=== PATIENT | male | born 1950 | race Caucasian/White ===

== ENCOUNTER 2023-01-27 13:36 | Outpatient (CLI) | payer MEDICARE, BC, SELFPAY | END 2023-01-27 13:37 | disposition home or self-care (01) | PROVIDERS: PCP Family Medicine; Visit Provider Internal Medicine Cardiovascular Disease | DX: I77.810 Thoracic aortic ectasia (principal); I51.7 Cardiomegaly | CPT/HCPCS: 93306 ==